=== PATIENT | female | born 1980 ===

== ENCOUNTER 2019-02-22 16:44 | Observation (INO) | payer SELFPAY ==
[2019-02-22 17:52] LABS: PLATELET COUNT 224 10^3/uL (150-400)
[2019-02-22] MEDS ORDERED: IBUPROFEN 600 MG TAB PO PRN (18:38)
[2019-02-22] MEDS ORDERED: ACETAMINOPHEN 325 MG TAB PO PRN (18:38)
[2019-02-22] MEDS ORDERED: MAGNESIUM SULF 4 GM/WATER 100 ML IV ONE (18:38)
[2019-02-22] MEDS ORDERED: CALCIUM GLUC 10% 1 GM/10 ML VIAL IVP PRN (18:38)
--- NOTE | 2019-02-22 18:56 | GHP ---
[f rep st] PREOP HISTORY AND PHYSICAL DATE OF ADMISSION: 02/22/2019 ADMISSION DIAGNOSIS: preeclampsia versus chronic hypertension. HISTORY OF PRESENT ILLNESS: The patient is a 38-year-old, 2, para 0-1-1-0, who presented for an elective termination of of a 32 week to the [facility]. The pat shavonne has a history of chronic hypertension and was last on medication at the end of last year. She h ad been on valsartan. Her blood pressures had been stable recently. When she presented to the [facility] her blood pressure was 140/90. She had dig injected to stop the baby's heart and had 2 days of laminaria. She underwent an intact extraction today. She did not receive any metharge n following the procedure. Several hours after the procedure her blood pressure was 170/110 and she was not in any pain at that time. The patient was sent by ambulance to the hospital for evaluation. Her initial blood pressures were 140s over 80s, however, she did have a blood pressure that was 170/ 92 and has had another blood pressure of 166/82. We had a long discussion with patient about recomme ndations of magnesium sulfate for presumptive preeclampsia. Patient denies any headache o r changes in vision. She does not have any hyperreflexia, however, because [place] and [place] scheduled to fly home tomorrow and wanted to avoid any potential risks, a decision was m alberto to admit the patient for magnesium sulfate and observation. MEDICAL HISTORY: Significant for hypertension. Blood pressures have been stable off medications for several months prior to . MEDICATIONS: None. SURGICAL HISTORY: Tonsillectomy and adenoidectomy. ALLERGIES: No known drug allergies. SOCIAL HISTORY: Patient denies any tobacco or drug use. She does drink alcohol socially. FAMILY MEDICAL HISTORY: Significant for hypertension. 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 She has had 2 voluntary terminations of , the mos t recent one today. PHYSICAL EXAM: VITAL SIGNS: Patient's vital signs are stable with stable and occasional higher norm al or high blood pressures. Her heart rate is in the 90s, respiratory rate 16. GENERAL APPEARANCE: Alert and oriented x3. MUSCULOSKELETAL: Grossly intact. PSYCH: Appropriate affect. NECK: Mobil e and supple. HEART: Rate is regular. LUNGS: Clear to auscultation bilaterally. ABDOMEN: Obese, nondistended, nontender. EXTREMITIES: Reveal no calf tenderness or edema. PELVIC: Exam was defer red. LABORATORY DATA: Pre-eclampsia labs were obtained and her hemoglobin is 11.7, hematocrit is 35, plat elets are 224, creatinine is 0.5. AST is 15, ALT is 11, uric acid is 3.8. REVIEW OF SYSTEMS: 10-point review of systems is negative. She is having normal lochia. She denies any headache or changes in vision or any nausea, vomiting, fevers, or chills. ASSESSMENT AND PLAN: A 38-year-old, 2, para 0-1-1-0, who has chronic hypertension versus sup erimposed preeclampsia, status post voluntary termination of of a 32 week fetus. The patie nt is agreeable to starting with magnesium sulfate for 24 hours. We discussed Aguilar catheter and anthony ng n.p.o. The patient will be observed closely and likely discharged home tomorrow. /[id number]/MODL
[2019-02-22] MEDS: Mag Sulf 500 ML IV SCH (20:27)
[2019-02-23] MEDS ORDERED: LABETALOL HCL 100 MG TAB PO SCH
[2019-02-23 06:04] LABS: PLATELET COUNT 224 10^3/uL (150-400)
[2019-02-23] MEDS: Mag Sulf 500 ML IV SCH (07:38)
--- NOTE | 2019-02-23 09:45 | OBPP ---
Progress Note Assessment/Plan: Assessment: 38 y/o PPD #1 s/p elective TAB @ 32 weeks with Chronic HTN and superimposed pre eclampsia. Plan: We will d/c MgSo4 at 24 hours post delivery @ 12:00. We will monitor BP off MgSo4 and decide about the need for medication. If stable, may d/c home this afternoon. 02/23/19 09:50 Subjective/ Course: 02/23/19 09:32 Pt is doing well this am. She denies pain, GALINDO, scotomata or RUQ pain. No nausea/vomiting. She is anxious to return home and hopes to go tomorrow. She was on Valsartan/ HCTZ until 2018, but has been off meds this year. She says she has a PCP who manages her BP and she can follow-up when she returns home. Objective: 02/23/19 05:50 02/23/19 05:55 Uric Acid 4.6 mg/dL (2.5-6.8) 02/23/19 05:55 Total Bilirubin 0.5 mg/dL (0.1-1.4) 02/22/19 17:45 Conjugated Bilirubin 0.1 mg/dL (0.0-0.5) 02/22/19 17:45 Unconjugated Bilirubin 0.4 mg/dL (0.0-1.1) 02/22/19 17:45 AST 16 IU/L (14-46) 02/23/19 05:55 ALT 22 IU/L (9-52) 02/23/19 05:55 Lactate Dehydrogenase 527 IU/L (313-618) 02/23/19 05:55 Temp Pulse Resp BP Pulse Ox 95 16 127/84 H 96 02/22/19 18:10 02/22/19 16:50 02/23/19 05:59 02/23/19 07:20 142/85, 159/87,127/84, 121/75, 113/63, 147/88, 125/73 Uterine Position/Fundal Height: Umbilicus -2 Uterine Tone: Firm Physical Exam - Physical Exam General Appearance: WD/WN, alert, no apparent distress Neck: non-tender, full range of motion, supple Respiratory: chest non-tender, lungs clear, normal breath sounds Cardiac/Chest: regular rate, rhythm Abdomen: normal bowel sounds Extremities: swelling (tr), Nelida's sign (neg)
[2019-02-23 16:53] VITALS: BP 153/98
[2019-02-23] MEDS ORDERED: LABETALOL HCL 100 MG TAB PO ONE (17:00)
== END 2019-02-23 18:45 | disposition home or self-care (01) ==
LOC: FLD 16:44
PROVIDERS: ADMIT Obstetrics & Gynecology; ATTEND Obstetrics & Gynecology
DX: O11.5 Pre-existing hypertension with pre-eclampsia, complicating the puerperium (principal)
CPT/HCPCS: G0378; J0610; J3475